=== PATIENT | female | born 1930 | race Caucasian/White ===

== ENCOUNTER 2016-10-07 12:41 | Emergency (ER) | payer MEDICARE ==
[~2016-10-07] VITALS: Wt 91.4 kg
[~2016-10-07 12:41] MED LIST: ASPIR LOW81 MG PO; ATORVASTATIN CA40 MG PO; CALCIUM 600 MG-1 TAB PO; COZAAR50 MG PO; HCTZ 25MG25 MG PO; MULTIPLE VITAMI1 CAP PO; TOPROL XL 25MG25 MG PO; VITAMIN C500 MG PO; VITAMIN E1000 U/CAP PO
[2016-10-07] MEDS ORDERED: CLOPIDOGREL PO (12:51)
[2016-10-07] MEDS ORDERED: ONDANSETRON HYDR4 M1 PO (14:23)
[2016-10-07] MEDS ORDERED: NORCO 325 MG-51 TAB PO (14:23)
[2016-10-07 14:40] VITALS: BP 164/67
== END 2016-10-07 14:44 | disposition home or self-care (01) ==
LOC: ED 12:41
DX: R11.2 Nausea with vomiting, unspecified (principal); T40.4X5A Adverse effect of other synthetic narcotics, initial encounter; M25.551 Pain in right hip; I25.10 Atherosclerotic heart disease of native coronary artery without angina pectoris; E78.5 Hyperlipidemia, unspecified; Z85.038 Personal history of other malignant neoplasm of large intestine; Z79.02 Long term (current) use of antithrombotics/antiplatelets; I65.29 Occlusion and stenosis of unspecified carotid artery

== ENCOUNTER 2020-07-09 16:44 | Emergency (ER) | payer MEDICARE ==
[~2020-07-09 16:44] MED LIST changes: +CLOPIDOGREL PO; +NORCO 325 MG-51 TAB PO; +ONDANSETRON HYDR4 M1 PO
[2020-07-09] MEDS ORDERED: CORDARONE200 MG/TAB PO (17:22)
[2020-07-09] MEDS ORDERED: ATORVASTATIN CA80 MG PO (17:22)
[2020-07-09] MEDS ORDERED: CLOPIDOGREL75 M2 PO (17:23)
[2020-07-09] MEDS ORDERED: TORSEMIDE20 M1 PO (17:23)
[2020-07-09] MEDS ORDERED: METOPROLOL SUCC50 M1 PO (17:23)
[2020-07-09] MEDS ORDERED: ELIQUIS2.5 MG PO (17:23)
[2020-07-09] MEDS ORDERED: POTASSIUM CHLO20 ME3 PO (17:23)
[2020-07-09 20:56] LABS: BASO # 0.04 (0.02-0.10); EOS # 0.09 (0.04-0.40); EOS % 0.7 % (1.0-5.0); HEMATOCRIT 31.8 % (37.0-47.0); HEMOGLOBIN 10.4 g/dL (12.5-16.0); LYMPH# 1.22 (1.50-4.00); MEAN CELL VOLUME 91 fl (78-100); MEAN CORPUSCULAR HEMOGLOBIN 30 pg (27-31); MEAN CORPUSCULAR HGB CONC 33 g/dL (33-37); MEAN PLATELET VOLUME 9.5 fl (7.4-10.4); MONO # 1.13 (0.20-0.80); NEU # 10.34 (1.40-6.50); PLATELET COUNT 175 K/mm3 (130-400); RED CELL DISTRIBUTION WIDTH 14.4 % (11.5-14.5); WHITE BLOOD COUNT 12.9 K/mm3 (4.8-10.8)
[2020-07-09 21:07] LABS: ALBUMIN 3.8 g/dL (3.4-4.8)
[2020-07-09 21:08] LABS: CALCIUM 9.1 mg/dL (8.3-10.5)
[2020-07-09 21:09] LABS: TOTAL PROTEIN 7.2 g/dL (6.2-8.1)
[2020-07-10 00:46] VITALS: BP 164/66
== END 2020-07-10 00:47 | disposition short-term general hospital (02) ==
LOC: ED 16:44
PROVIDERS: Family Medicine
DX: S32.502A Unspecified fracture of left pubis, initial encounter for closed fracture (principal); I48.91 Unspecified atrial fibrillation; I25.10 Atherosclerotic heart disease of native coronary artery without angina pectoris; I10 Essential (primary) hypertension; Z79.01 Long term (current) use of anticoagulants; Z79.899 Other long term (current) drug therapy; Z20.822 Contact with and (suspected) exposure to COVID-19; W01.0XXA Fall on same level from slipping, tripping and stumbling without subsequent striking against object, initial encounter; Y92.009 Unspecified place in unspecified non-institutional (private) residence as the place of occurrence of the external cause
CPT/HCPCS: J2270

== ENCOUNTER 2020-10-03 12:53 | Emergency (ER) | payer MEDICARE ==
[~2020-10-03 12:53] MED LIST changes: +ATORVASTATIN CA80 MG PO; +CLOPIDOGREL75 M2 PO; +CORDARONE200 MG/TAB PO; +ELIQUIS2.5 MG PO; +METOPROLOL SUCC50 M1 PO; +POTASSIUM CHLO20 ME3 PO; +TORSEMIDE20 M1 PO
[2020-10-03] MEDS ORDERED: ELIQUIS5 MG PO (13:03)
[2020-10-03 13:51] LABS: BASO # 0.03 (0.02-0.10); EOS # 0.15 (0.04-0.40); EOS % 1.5 % (1.0-5.0); LYMPH# 1.51 (1.50-4.00); MEAN CELL VOLUME 98 fl (78-100); MEAN CORPUSCULAR HEMOGLOBIN 30 pg (27-31); MEAN CORPUSCULAR HGB CONC 30 g/dL (33-37); MEAN PLATELET VOLUME 9.1 fl (7.4-10.4); MONO # 0.97 (0.20-0.80); NEU # 7.02 (1.40-6.50); PLATELET COUNT 232 K/mm3 (130-400); RED CELL DISTRIBUTION WIDTH 17.3 % (11.5-14.5); WHITE BLOOD COUNT 9.8 K/mm3 (4.8-10.8)
[2020-10-03 13:55] LABS: RED BLOOD COUNT 1.69 M/mm3 (4.10-5.30)
[2020-10-03 13:56] LABS: HEMATOCRIT 16.5 % (37.0-47.0)
[2020-10-03 14:01] LABS: URINE APPEARANCE HAZY; URINE COLOR YELLOW
[2020-10-03 14:02] LABS: URINE BILIRUBIN NEGATIVE (NEGATIVE); URINE BLOOD 50 ery/uL (NEGATIVE); URINE GLUCOSE NEGATIVE (NEGATIVE); URINE KETONE NEGATIVE (NEGATIVE); URINE LEUKOCYTE ESTERASE 2+ (NEGATIVE); URINE MUCUS PRESENT (NOT PRESENT); URINE NITRATE NEGATIVE (NEGATIVE); URINE PROTEIN(semi-quant) NEGATIVE (NEGATIVE); URINE UROBILINOGEN NORMAL (NORMAL); URINE WBC >50 /hpf (0-3)
[2020-10-03 14:07] LABS: ALBUMIN 3.5 g/dL (3.4-4.8); POTASSIUM 3.7 mmol/L (3.5-5.1); SODIUM 141 mmol/L (136-145)
[2020-10-03 14:08] LABS: CALCIUM 9.3 mg/dL (8.3-10.5)
[2020-10-03 14:09] LABS: GLUCOSE 111 mg/dL (65-105); TOTAL PROTEIN 6.7 g/dL (6.2-8.1)
[2020-10-03 14:10] LABS: CARBON DIOXIDE 19 mmol/L (23-31)
[2020-10-03 14:11] LABS: TOTAL BILIRUBIN 0.6 mg/dL (0.2-1.2)
[2020-10-03 14:14] LABS: AST-SGOT 26 U/L (5-34)
[2020-10-03 14:16] LABS: ALT/SGPT 20 U/L (0-55); LIPASE 26 U/L (8-78)
[2020-10-03 14:22] LABS: TROPONIN-I 0.06 ng/mL (<0.030)
[2020-10-03 14:35] LABS: D-DIMER 0.84 mg/L FEU (0.15-0.50)
[2020-10-03 15:25] VITALS: BP 107/57
== END 2020-10-03 15:26 | disposition short-term general hospital (02) ==
LOC: ED 12:53
PROVIDERS: Nurse Practitioner
DX: N17.9 Acute kidney failure, unspecified (principal); I82.409 Acute embolism and thrombosis of unspecified deep veins of unspecified lower extremity; D62 Acute posthemorrhagic anemia; Z79.01 Long term (current) use of anticoagulants; Z20.822 Contact with and (suspected) exposure to COVID-19

== ENCOUNTER 2021-07-18 15:45 | Emergency (ER) | payer MEDICARE ==
[~2021-07-18 15:45] MED LIST changes: +ELIQUIS5 MG PO
[2021-07-18] MEDS ORDERED: METOPROLOL SUCC25 M1 PO (16:10)
[2021-07-18] MEDS ORDERED: LEVOTHYROXIN0.075 MG PO (16:10)
[2021-07-18 16:37] LABS: BASO # 0.01 K/mm3 (0.02-0.10); HEMATOCRIT 28.2 % (37.0-47.0); HEMOGLOBIN 8.9 g/dL (12.5-16.0); LYMPH# 1.15 K/mm3 (1.50-4.00); MEAN CELL VOLUME 90 fl (78-100); MEAN CORPUSCULAR HEMOGLOBIN 28 pg (27-31); MEAN CORPUSCULAR HGB CONC 32 g/dL (33-37); MEAN PLATELET VOLUME 10.7 fl (7.4-10.4); MONO # 1.08 K/mm3 (0.20-0.80); NEU # 9.87 K/mm3 (1.40-6.50); PLATELET COUNT 128 K/mm3 (130-400); RED BLOOD COUNT 3.14 M/mm3 (4.10-5.30); RED CELL DISTRIBUTION WIDTH 16.2 % (11.5-14.5); WHITE BLOOD COUNT 12.2 K/mm3 (4.8-10.8)
[2021-07-18 16:49] LABS: ALBUMIN 3.6 g/dL (3.4-4.8); POTASSIUM 3.8 mmol/L (3.5-5.1)
[2021-07-18 16:50] LABS: CALCIUM 9.1 mg/dL (8.3-10.5)
[2021-07-18 16:51] LABS: TOTAL PROTEIN 7.1 g/dL (6.2-8.1)
[2021-07-18 16:53] LABS: TOTAL BILIRUBIN 1.7 mg/dL (0.2-1.2)
[2021-07-18 17:04] LABS: TROPONIN-I 0.041 ng/mL (<0.030)
[2021-07-18 17:17] LABS: D-DIMER 1.15 mg/L FEU (0.15-0.50)
[2021-07-18 19:06] VITALS: BP 130/47
== END 2021-07-18 19:00 | disposition short-term general hospital (02) ==
LOC: ED 15:45
PROVIDERS: Physician Assistant
DX: U07.1 COVID-19 (principal); N18.9 Chronic kidney disease, unspecified; I50.9 Heart failure, unspecified; I11.0 Hypertensive heart disease with heart failure; D72.829 Elevated white blood cell count, unspecified; R79.82 Elevated C-reactive protein (CRP); Z28.310 Unvaccinated for COVID-19; Z73.0 Burn-out
CPT/HCPCS: J1100; J1940; J1956; J7040